=== PATIENT | female | born 1940 | race Caucasian/White ===

== ENCOUNTER 2016-11-30 17:01 | Emergency (ER) | payer MEDICARE, BC ==
[~2016-11-30] VITALS: Ht 162.6 cm; Wt 64.0 kg
[~2016-11-30 17:01] MED LIST: ABAT250V IV; ACET-732 PO; BIOT5TAB PO; CA C1TAB67 PO; CETI-273 PO; DIPH25CA84 PO; DOCU-139 PO; FERR-70 PO; FISH1CAP59 PO; FLUT16SP12 EA NOSTRIL; FOLI-40 PO; METH2.5T33 PO; MULT1CAP47 PO; NAPR500T6 PO; OMEP20CA81 PO; PRAV20TA44 PO; SOTA80TA PO; WARF2.5T73 PO; WARF5TAB6 PO; [UNRECOGNIZED DRUG - CODE] BOTH EYES
[2016-11-30 17:05] VITALS: Ht 162.6 cm; Wt 64.0 kg
--- OUTSIDE RECORDS SUMMARY | 2016-11-30 17:05 | XMS REPORT | Continuity of Care Document ---
Author Author [facility] Organization [facility] Address Unknown Phone Unavailable Allergies Active Description Code Type Severity Reaction Onset Reported/Identified Relationship to Patient Clinical Status Yes No Known Allergies Drug Allergy 12/05/2012 Yes No Known Allergies Drug Allergy N/A N/A 12/05/2012 Yes No Known Drug Allergies Drug Allergy 12/05/2012 Yes No Known Drug Allergies Drug Allergy N/A N/A 12/05/2012 Yes No Known Food Allergies Food Allergy 12/05/2012 Yes No Known Food Allergies Food Allergy N/A N/A 12/05/2012 Medications Problems Date Dx Coded Attending Type Code Diagnosis Diagnosed By 12/05/2012 Camilo Lynch MD Final 272.2 MIXED HYPERLIPIDEMIA 12/05/2012 Camilo Lynch MD Final 278.02 OVERWEIGHT 12/05/2012 Camilo Lynch MD Final 427.89 OTH CARDIAC DYSRHYTHMIAS 12/05/2012 Camilo Lynch MD Final 511.9 PLEURAL EFFUSION NOS 12/05/2012 Camilo Lynch MD Final 714.0 RHEUMATOID ARTHRITIS 12/05/2012 Camilo Lynch MD Final 780.4 DIZZINESS GIDDINESS 12/05/2012 Camilo Lynch MD Final 785.1 PALPITATIONS 12/05/2012 Camilo Lynch MD Final V85.22 BMI 26.0-26.9 ADULT 12/05/2012 Camilo Lynch MD Admitting 427.89 OT CARDIAC DYSRHYTHMIAS Procedures Results Encounters ACCT No. Visit Date/Time Discharge Status Pt. Type Provider Facility Loc./Unit Complaint [id number] 12/05/2012 08:05:00 2012 13:10:00 DIS Outpatient Camilo Lynch MD [facility] on [employer]
--- NOTE | 2016-11-30 18:00 | NUR ---
PROVIDER DR CARTY IN TO SEE PATIENT.
--- OUTSIDE RECORDS SUMMARY | 2016-11-30 18:10 | XMS REPORT | Continuity of Care Document ---
Author Author [facility] Organization [facility] Address Unknown Phone Unavailable Allergies Active [...] Status Pt. Type Provider Facility Loc./Unit Complaint [id number] 12/05/2012 08:05:00 2012 13:10:00 DIS Outpatient Camilo Lynch MD [facility] on [employer]
[2016-11-30] MEDS ORDERED: OMEP40CA52 PO (18:11)
[2016-11-30] MEDS ORDERED: SOTA80TA PO (18:11)
[2016-11-30 18:14] LABS: BASOPHILS # (AUTO) 0.1 T/MM3 (0-0.2); BASOPHILS % (AUTO) 0.9 % (0-2); EOSINOPHILS # (AUTO) 0.1 T/MM3 (0-0.5); EOSINOPHILS % (AUTO) 1.3 % (0-4); HGB - HEMOGLOBIN 8.6 GM/DL (12-16); IMMATURE GRANULOCYTE # (AUTO) 0.01 T/MM3 (0.00-0.03); IMMATURE GRANULOCYTE % (AUTO) 0.1 % (0.0-0.5); LYMPHOCYTES % (AUTO) 25.2 % (23-45); MEAN CORPUSCULAR HGB 29.5 UUG (26-34); MEAN CORPUSCULAR HGB CONC(MCHC 30.7 GM/DL (31-37); MEAN CORPUSCULAR VOLUME 95.9 UM3 (80-100); MONOCYTES # (AUTO) 0.8 T/MM3 (0-0.8); MONOCYTES % (AUTO) 10.1 % (0-9.0); NEUTROPHILS % (AUTO) 62.4 % (33-66); RED BLOOD COUNT 2.92 M/MM3 (4.00-5.20)
[2016-11-30 18:19] LABS: INR 2.34 (0.76-1.04); PROTHROMBIN TIME 25.5 SEC (9.31-12.49)
[2016-11-30] MEDS ORDERED: MULT1TAB69 PO (18:19)
[2016-11-30] MEDS ORDERED: CALC-727 PO (18:19)
[2016-11-30] MEDS ORDERED: FISH1CAP2 PO (18:21)
[2016-11-30] MEDS ORDERED: CETI-115 PO (18:23)
[2016-11-30] MEDS ORDERED: NAPR220C11 PO (18:25)
--- NOTE | 2016-11-30 18:30 | NUR ---
IV NOT PLACED DUE TO TIME CONSTRAINTS. BLOOD IS DRAWN BY LAB.
--- NOTE | 2016-11-30 18:57 | ERPDOC ---
Departure Disposition Decision Date: Nov 30, 2016 Disposition Decision Time: 20:21 Disposition: 01 DISCHARGED HOME, SELF-CARE Impression Impression Impression: Primary Impression: Atrial fibrillation with RVR Severity: Moderate Condition: Improved Seen By: Physician only Referrals: CEE STEPHENS (Family) Patient Instructions: Atrial Fibrillation (ED) Problems/Meds/Labs Reviewed?: Yes Medications reviewed and manag: Yes Additional Instructions: Continue all your routine medications as prescribed Call Dr. Lynch anytime this for any problems, otherwise call first thing Saturday to schedule appointment with Dr. Lynch at his clinic Follow up care ordered?: Yes Mental Status: Alert HPI - Cardiac General Chief Complaint: Cardiac Complaint Stated Complaint: POSSIBLE AFIB/PER PACEMAKER CHECK Time Seen by Provider: 17:53 Source: patient Exam Limitations: no limitations HPI - Cardiac General Initial Comments Patient has had several of tachycardia today. When she called and had her pacemaker interrogated, she was found to have had 2-3 runs of atrial fibrillation with rapid ventricular response. Cris earlier in the day, and was told that if she had another episode come to ER. Patient did indeed have another episode at home, so she presented to the ER. Currently the patient's only complaint is generalized weakness. Patient has no headache, dizziness, lightheadedness, pressure or pain, shortness of breath, abdominal complaint, or neurologic complaint. Occurred At: home Onset/Timing: Rapid Severity: moderate Activities at Onset/Context: none Nitro Today/Relief: no nitro taken today Aspirin Today: unknown Associated Symptoms: weakness, DENIES: chest pain, cough, diaphoresis, fever/ chills, headaches, loss of appetite, malaise, nausea/vomiting, rash, seizure, shortness of breath, syncope Hx of Similar Symptoms: Yes Allergies: Coded Allergies: codeine (Verified Adverse Reaction, Unknown, GI UPSET, 08/04/13) Past History Past Medical History Metabolic: hypercholesterolemia Cardiac: A-fib, CAD GI: GERD, constipation Musculoskeletal: osteoarthritis, rheumatoid arthritis PMH Comments Raynaud's Surgical History General: gallbladder Cardiac: pacemaker, radio ablation Reproductive/: D&C Surgical History Comments Right meniscus repair Bunionectomy Family History Family PMH: FOUND: other Vaccines Hx Influenza Vaccination: Yes () Hx Pneumococcal Vaccination: Yes () Social History Does patient use chewing tobac: No Physical Exam General General Nourishment: well nourished, well developed, appears stated age, no acute distress General Body Habitus: well groomed Vitals and Pain First Documented Vital Signs Date Time Temp Pulse Resp B/P Pulse Ox O2 Delivery O2 Flow Rate FiO2 11/30/16 17:05 99.4 63 14 180/80 97 Room Air Weight: Kilograms: 64.000 Height (feet): 5 Height (inches): 4.00 Triage Pain Scale: RN VS reviewed by Provider: Yes Normal Exams: Head: Normocephalic w/o trauma Eyes: Pupils are PERRLA w/ EOMI, No scleral icterus, irritation, or foreign bodies noted ENMT: No facial trauma, nasal exudates, pharyngeal erythema, or exudates are noted Neck: Full range of motion, without adenopathy, JVD, bruits or thyromegaly Chest/Resp: Clear all kirby, with good airflow, and symmetry bilaterally CV: Regular rate and rhythm, without murmur or gallop, Pulses 2+ all extremities, capillary refill, <2 seconds all ext., no pedal edema noted Abdomen: Bowel sounds positive, soft, non-tender, non-distended, no hepatosplenomegaly, masses or bruits noted Musculoskeletal: No tenderness, or deformity noted, good range of motion, all extremities Integumentary: No rashes, hives, or bruising noted, hair and nails, without abnormality Neurologic: Patient is alert, and oriented, cranial nerves, motor/sensory/ cerebellar, exams w/o gross deficits, to observation Psychiatric: Patient exhibits, appropriate attention, emotion and affect Progress Results/Orders Orders Procedure Category Date Status Time Iv Lock (Ed Only) EDM 11/30/16 Transmitted 17:54 EKG EKG 11/30/16 Logged Troponin I W LAB 11/30/16 Complete Hemolysis Index Cbc W/Auto LAB 11/30/16 Complete Diff-Reflex Manual Cmp - Comprehensive LAB 11/30/16 Complete Metabolic INR LAB 11/30/16 Complete Lab Results Laboratory Tests Test 11/30/16 18:08 11/30/16 18:09 White Blood Count 8.0T/MM3 Red Blood Count 2.92M/MM3 Hemoglobin 8.6GM/DL Hematocrit 28.0% Mean Corpuscular Volume 95.9UM3 Mean Corpuscular Hemoglobin 29.5UUG Mean Corpuscular Hemoglobin Concent 30.7GM/DL RDW Standard Deviation 46.1FL Platelet Count 316T/MM3 Mean Platelet Volume 11.0UM3 Immature Granulocyte % (Auto) 0.1% Neutrophils (%) (Auto) 62.4% Lymphocytes (%) (Auto) 25.2% Monocytes (%) (Auto) 10.1% Eosinophils (%) (Auto) 1.3% Basophils (%) (Auto) 0.9% Absolute Immature Granulocyte (auto 0.01T/MM3 Absolute Neutrophils (auto) 5.0T/MM3 Absolute Lymphocytes (auto) 2.0T/MM3 Absolute Monocytes (auto) 0.8T/MM3 Absolute Eosinophils (auto) 0.1T/MM3 Absolute Basophils (auto) 0.1T/MM3 Turbidity < 20 Sodium Level 147MEQ/L Potassium Level 3.6MEQ/L Chloride Level 113MEQ/L Carbon Dioxide Level 25MEQ/L Anion Gap 9MEQ/L Blood Urea Nitrogen 10.0MG/DL Creatinine 0.7MG/DL Glomerular Filtration Rate Calc 81 BUN/Creatinine Ratio 14RATIO Glucose Level 87MG/DL Calculated Osmolality 280MOSM/KG Calcium Level 8.5MG/DL Total Bilirubin 0.40MG/DL Icterus Index < 2 Aspartate Amino Transf (AST/SGOT) 33U/L Alanine Aminotransferase (ALT/SGPT) 30U/L Alkaline Phosphatase 46U/L Troponin I < 0.012ng/ml Total Protein 5.6G/DL Albumin 3.2G/DL Globulin 2.4G/DL Albumin/Globulin Ratio 1.3RATIO Chemistry Specimen Hemolysis 28 Prothromb Time International Ratio 2.34 Progress Progress EKG shows atrial paced rhythm at 63 bpm with no ischemia, or infarction. Patient does appear to be in an underlying atrial fibrillation. CBC - n CMP - n Troponin - n Case discussed with Dr. Lynch, since the patient has been in essentially a paced or sinus rhythm for the past 2 hours on monitor, and her symptoms have essentially gone away, patient is dismissed in stable condition to follow up with Dr. Lynch next week, or call the weekend for any problems. RAYRAY CARTY MD Nov 30, 2016 18:57
[2016-11-30 19:17] LABS: ALBUMIN 3.2 G/DL (3.5-5.0); ALBUMIN/GLOBULIN RATIO 1.3 RATIO (1.1-2.2); ALKALINE PHOSPHATASE 46 U/L (38-126); ALT (SGPT) 30 U/L (9-52); ANION GAP 9 MEQ/L (5-15); AST (SGOT) 33 U/L (14-36); BUN/CREATININE RATIO 14 RATIO (6-26); CALCIUM 8.5 MG/DL (8.4-10.2); CHLORIDE 113 MEQ/L (98-107); CO2 - CARBON DIOXIDE 25 MEQ/L (22-30); CREATININE 0.7 MG/DL (0.7-1.2); GLOMERULAR FILTRATION RATE 81; GLUCOSE 87 MG/DL (65-110); POTASSIUM 3.6 MEQ/L (3.6-5); SODIUM 147 MEQ/L (134-144); TOTAL PROTEIN 5.6 G/DL (6.3-8.2)
[2016-11-30 20:45] VITALS: BP 160/70; PULSE 59; RESP 16; TEMP 99.4; O2SAT 95
== END 2016-11-30 20:45 | disposition home or self-care (01) ==
LOC: ED 17:01
DX: I48.91 Unspecified atrial fibrillation (principal); Z79.01 Long term (current) use of anticoagulants
CPT/HCPCS: 36415; 80053; 84484; 85025; 85610; 93005

== ENCOUNTER → 2016-12-11 | Outpatient (CLI) | payer MEDICARE, BC ==
[~2016-12-11] VITALS: Ht 160 cm; Wt 65.0 kg
[~2016-12-11] MED LIST changes: -ABAT250V IV; -CA C1TAB67 PO; +CALC-727 PO; +CETI-115 PO; -CETI-273 PO; +FISH1CAP2 PO; -FISH1CAP59 PO; -METH2.5T33 PO; -MULT1CAP47 PO; +MULT1TAB69 PO; +NAPR220C11 PO; -NAPR500T6 PO; -OMEP20CA81 PO; +OMEP40CA52 PO; +SALINE FLUSH 10ml SYRINGE ONE
--- NOTE | 2016-12-12 16:20 | ADENOSINEF ---
STRESS TEST DATE OF PROCEDURE December 11, 2016 PROCEDURE Treadmill Myoview. INDICATION Atrial fibrillation. IMPRESSION 1. Baseline EKG is normal sinus rhythm with right bundle branch block. 2. She walked a total of 4 minutes 28 seconds into stage II Eriberto protocol. 3. 85% predicted maximal heart rate was exceeded. 4. She reported no angina. 5. Hemodynamic response to exercise was appropriate. 6. 12.7 mCi of Myoview was given for rest images and 32.7 mCi for stress images. 7. There were no ischemic EKG changes. 8. There were no arrhythmias. 9. Nuclear perfusion images revealed normal coronary perfusion with no scar or ischemia. 10. Quantitative ejection fraction is measured at 64%. MTDD
== END ==
LOC: IMA 12:54
PROVIDERS: ATTEND Internal Medicine Cardiovascular Disease
DX: I48.0 Paroxysmal atrial fibrillation (principal); I45.10 Unspecified right bundle-branch block
CPT/HCPCS: 78452; 93017; A9502